=== PATIENT | female | born 1940 | race Two or more races ===

== ENCOUNTER 2018-08-29 05:50 | Day surgery (SDC) | payer OTHER ==
[~2018-08-29 05:50] MED LIST: ASA81 MG PO; LIPITOR20 MG PO; METOPROLOL SUCC25 MG PO; NORVASC5 MG PO
== END 2018-08-29 14:00 | disposition home or self-care (01) ==
LOC: CIR.AMB 05:50
DX: K80.10 Calculus of gallbladder with chronic cholecystitis without obstruction (principal)